=== PATIENT | male | born 1985 | race Caucasian/White ===

== ENCOUNTER 2021-05-25 11:01 | Emergency (ER) | payer OTHER ==
[2021-05-25 11:14] VITALS: BP 118/73; PULSE 70; TEMP 97.8; BMI 23.3
[2021-05-25] MEDS ORDERED: FLUORESCEIN NA 1 EA STRIP ONE (12:15)
[2021-05-25] MEDS ORDERED: TETRACAINE 0.5% OPHTH SOLN 2 ML BOTTLE ONE (12:15)
[2021-05-25] MEDS ORDERED: IBUPROFEN 600 MG TABLET (FP) PO ONE ×2 (12:59→13:00)
[2021-05-25] MEDS ORDERED: FLUORESCEIN NA 1 EA STRIP OD ONE (13:04)
[2021-05-25] MEDS ORDERED: TETRACAINE 0.5% OPHTH SOLN 2 ML BOTTLE OD ONE (13:04)
== END 2021-05-25 13:07 | disposition home or self-care (01) ==
LOC: JERFT 11:01
DX: S05.8X2A Other injuries of left eye and orbit, initial encounter (principal); W22.8XXA Striking against or struck by other objects, initial encounter; Y92.9 Unspecified place or not applicable
CPT/HCPCS: 99283-25

== ENCOUNTER 2023-08-06 20:06 | Emergency (ER) | payer OTHER ==
[2023-08-06 20:31] VITALS: BP 135/87; PULSE 65; RESP 18; TEMP 98.3; BMI 24.0
[2023-08-06] MEDS ORDERED: KETOROLAC TROMETHAMINE 30 MG/1 ML VIAL IM ONE (20:38)
[2023-08-06] MEDS ORDERED: KETOROLAC TROMETHAMINE 30 MG/1 ML VIAL ONE (21:13)
[2023-08-06] MEDS ORDERED: CEPHALEXIN MONOHYDRATE 500 MG CAPSULE (UD) PO ONE (21:57)
[2023-08-06] MEDS ORDERED: DIPHTH,PERTUSS(ACELL),TET 0.5 ML DISP.SYRIN IM ONE ×2 (21:57→22:05)
[2023-08-06] MEDS ORDERED: CEPHALEXIN MONOHYDRATE 500 MG CAPSULE (UD) ONE (22:04)
== END 2023-08-06 22:13 | disposition home or self-care (01) ==
LOC: JER 20:06 → JERFT 20:06
PROC: 3E0233Z Introduction of Anti-inflammatory into Muscle, Percutaneous Approach (ICD-10-PCS; principal; 2023-08-06)
PROC: 3E0234Z Introduction of Serum, Toxoid and Vaccine into Muscle, Percutaneous Approach (ICD-10-PCS; 2023-08-06)
DX: S61.412A Laceration without foreign body of left hand, initial encounter (principal); W22.8XXA Striking against or struck by other objects, initial encounter; Y93.89 Activity, other specified; Y92.009 Unspecified place in unspecified non-institutional (private) residence as the place of occurrence of the external cause
CPT/HCPCS: 73130-TC-LT-FY; 90471; 90715; 96372; 99284-25